=== PATIENT | female | born 1975 | race Caucasian/White ===

== ENCOUNTER 2016-08-23 20:12 | Emergency (ER) | payer MEDICAID ==
[~2016-08-23] VITALS: Ht 165.1 cm; Wt 81.3 kg
[~2016-08-23 20:12] MED LIST: IBUP-232 PO; IBUP800T23 PO; MACR100C2 PO; PERC5TAB12 PO
[2016-08-23 20:14] VITALS: BP 133/89; PULSE 79; RESP 18; TEMP 98.3; O2SAT 98
[2016-08-23 21:00] VITALS: BP 122/73; PULSE 78; RESP 18; O2SAT 97
[2016-08-23] MEDS ORDERED: SODIUM CHLOR 0.9% 1000 ML INJ 1,000 ML IV SCH (21:33)
--- NOTE | 2016-08-23 21:38 | PD ---
HPI Chief Complaint: Abdominal Pain Time Seen by Provider: 21:32 Travel History International Travel<30 days: No Contact w/Intl Traveler<30days: No Traveled to known affect area: No History of Present Illness HPI 41 year-old female presents to the emergency department by private transportation for complaint of progressive worsening right flank pain and lower abdominal pain 3 days. Patient's had nausea without vomiting. Patient denies diarrhea or constipation. Patient denies dysuria frequency urgency or hematuria. Patient denies vaginal discharge. Last menstrual period was normal for her August 13. Patient denies states she is status post previous tubal ligation. 5 para 3 AB 2. Patient states pain is very severe and if she was not having such severe persistent pain she would not come to the emergency room but has worsened today. Patient denies other concerns or complaints. No respiratory complaints no shortness of breath no chest pain. Patient reports prior history of recurrent kidney stones and patent reports that this is not the same type of pain. Patient is status post ligation and cholecystectomy in the past. Patient denies other surgeries. Patient does not report any lower extremity numbness tingling or weakness saddle anesthesia or bladder or bowel dysfunction. PFSH Past Medical History Narrative Medical Kidney stones with renal stent hepatitis C tubal ligation G 5 P3 Ab2; tobacco use; nursing notes reviewed Cancer: No Cardiovascular Problems: No Diabetes: No Diminished Hearing: No Endocrine: No Genitourinary: No Hepatitis: Yes (hep c) Hiatal Hernia: No Immune Disorder: No Kidney Stones: Yes Musculoskeletal: No Neurologic: No Psychiatric: No Reproductive: Yes (TL) Respiratory: Yes Immunizations Current: Yes Thyroid Disease: No Tetanus Vaccination: < 5 Years Influenza Vaccination: No ?: Not LMP: August 14, 2016 Menopausal: No : 5 Para: 3 Miscarriage: 1 : 1 Tubal Ligation: Yes Past Surgical History AICD: No Body Medical Devices: RIGHT ANKLE WITH SCREWS AND PINS Cholecystectomy: Yes Genitourinary Surgery: Yes (RIGHT RENAL STENT FOR HYDRONEPHROSIS ) Gynecologic Surgery: Yes (TL) Joint Replacement: No Pacemaker: No Social History Alcohol Use: No Tobacco Use: Yes (VAPES) Substance Use: No Allergies-Medications (Allergen,Severity, Reaction): Coded Allergies: Tylenol/Codeine (Unverified Adverse Reaction, Severe, Abdominal pain, 08/23) Reported Meds & Prescriptions Reported Meds & Active Scripts Active No Active Prescriptions or Reported Medications Review of Systems Except as stated in HPI: all other systems reviewed are Neg General / Constitutional: No: Fever, Chills HENT: No: Sore Throat, Congestion Cardiovascular: No: Chest Pain or Discomfort Respiratory: No: Shortness of Breath Gastrointestinal: Positive: Nausea, Abdominal Pain, Loss of Appetite, No: Vomiting, Diarrhea Genitourinary: Positive: Flank Pain, No: Urgency, Frequency, Dysuria, Hematuria, Discharge, Vaginal Bleeding Musculoskeletal: No: Myalgias, Arthralgias Skin: No Rash Neurologic: No: Weakness Psychiatric: No: Anxiety, Depression Hematologic/Lymphatic: No: Easy Bruising Physical Exam Narrative GENERAL: Well-developed well-nourished female in no acute respiratory distress SKIN: Warm and dry. HEAD: Normocephalic. EYES: No scleral icterus. No injection or drainage. NECK: Supple, trachea midline. No JVD or lymphadenopathy. CARDIOVASCULAR: Regular rate and rhythm without murmurs, gallops, or rubs. RESPIRATORY: Breath sounds equal bilaterally. No accessory muscle use. GASTROINTESTINAL: Abdomen soft, right lower quadrant and suprapubic lower abdominal pain without guarding or rebound, nondistended. Pelvic exam: MUSCULOSKELETAL: No cyanosis, or edema. BACK: Nontender without obvious deformity. Right-sided CVA tenderness. Data Data Last Documented VS Vital Signs Date Time Temp Pulse Resp B/P Pulse Ox O2 Delivery O2 Flow Rate FiO2 08/23/16 22:30 18 08/23/16 22:08 98 Room Air 08/23/16 22:00 62 138/82 08/23/16 20:14 98.3 Orders Complete Blood Count With Diff (08/23/16 21:33) Comprehensive Metabolic Panel (08/23/16 21:33) Lipase (08/23/16 21:33) Urinalysis - C+S If Indicated (08/23/16 21:33) Iv Access Insert/Monitor (08/23/16 21:33) Ecg Monitoring (08/23/16 21:33) Oximetry (08/23/16 21:33) Sodium Chlor 0.9% 1000 Ml Inj (Ns 1000 M (08/23/16 21:33) Sodium Chloride 0.9% Flush (Ns Flush) (08/23/16 21:45) Ed Urine Pregnancytest Poc (08/23/16 21:33) Ondansetron Inj (Zofran Inj) (08/23/16 21:45) Hydromorphone Pf Inj (Dilaudid Pf Inj) (08/23/16 21:45) Ct Abd/Pel W Iv Contrast(Rout) (08/23/16 ) Iohexol 350 Inj (Omnipaque 350 Inj) (08/23/16 23:50) Ketorolac Inj (Toradol Inj) (08/24/16 01:15) Hydromorphone Pf Inj (Dilaudid Pf Inj) (08/24/16 01:15) Ceftriaxone Inj (Rocephin Inj) (08/24/16 01:15) Labs Laboratory Tests Test 08/23/16 21:42 White Blood Count 8.7 TH/MM3 Red Blood Count 4.86 MIL/MM3 Hemoglobin 14.6 GM/DL Hematocrit 44.3 % Mean Corpuscular Volume 91.2 FL Mean Corpuscular Hemoglobin 30.2 PG Mean Corpuscular Hemoglobin 33.1 % Concent Red Cell Distribution Width 12.0 % Platelet Count 289 TH/MM3 Mean Platelet Volume 9.0 FL Neutrophils (%) (Auto) 60.3 % Lymphocytes (%) (Auto) 31.2 % Monocytes (%) (Auto) 5.6 % Eosinophils (%) (Auto) 2.0 % Basophils (%) (Auto) 0.9 % Neutrophils # (Auto) 5.2 TH/MM3 Lymphocytes # (Auto) 2.7 TH/MM3 Monocytes # (Auto) 0.5 TH/MM3 Eosinophils # (Auto) 0.2 TH/MM3 Basophils # (Auto) 0.1 TH/MM3 CBC Comment DIFF FINAL Differential Comment Urine Color YELLOW Urine Turbidity HAZY Urine pH 6.0 Urine Specific [place] 1.015 Urine Protein NEG mg/dL Urine Glucose (UA) NEG mg/dL Urine Ketones NEG mg/dL Urine Occult Blood TRACE Urine Nitrite NEG Urine Bilirubin NEG Urine Leukocyte Esterase NEG Urine RBC 0-3 /hpf Urine WBC 0-2 /hpf Urine Squamous Epithelial 6-8 /hpf Cells Urine Renal Epithelial Cells /hpf Urine Bacteria FEW /hpf Microscopic Urinalysis Comment CULT NOT INDICATED Sodium Level 141 MEQ/L Potassium Level 3.7 MEQ/L Chloride Level 108 MEQ/L Carbon Dioxide Level 24.8 MEQ/L Anion Gap 8 MEQ/L Blood Urea Nitrogen 10 MG/DL Creatinine 0.88 MG/DL Estimat Glomerular Filtration 70 ML/MIN Rate Random Glucose 88 MG/DL Calcium Level 9.1 MG/DL Total Bilirubin 0.9 MG/DL Aspartate Amino Transf 33 U/L (AST/SGOT) Alanine Aminotransferase 53 U/L (ALT/SGPT) Alkaline Phosphatase 66 U/L Total Protein 7.2 GM/DL Albumin 3.6 GM/DL Lipase 168 U/L [facility] Medical Decision Making Medical Screen Exam Complete: Yes Emergency Medical Condition: Yes Medical Record Reviewed: Yes Interpretation(s) Last Impressions Abdomen/Pelvis CT 08/23/16 0000 Signed Impressions: Service Date/Time: Tuesday, August 23, 2016 23:38 - CONCLUSION: 1. 1.9 cm area of decreased enhancement in the parenchyma in the upper pole of the right kidney; differential considerations include renal tumor, focal pyelonephritis, and segmental infarction. 2. No evidence of hydronephrosis on either side. 3. Prominent cervix and small hiatus hernia, stable from prior. Isidro Murray MD CBC & BMP Diagram 08/23/16 21:42 Vital Signs Date Time Temp Pulse Resp B/P Pulse Ox O2 Delivery O2 Flow Rate FiO2 08/23/16 22:30 18 08/23/16 22:08 98 Room Air 08/23/16 22:00 62 18 138/82 99 Room Air 08/23/16 21:00 78 18 122/73 97 Room Air 08/23/16 20:14 98.3 79 18 133/89 98 Differential Diagnosis Abdominal pain, renal colic, appendicitis, ovarian cyst rupture, ectopic , UTI Narrative Course IV access obtained specimens collected and sent for resulting patient administered IV fluid bolus, Zofran and Dilaudid 0.5 mg IV Diagnosis Primary Impression: Acute flank pain Additional Impression: Right flank pain Referrals: Primary Care Physician 1 day Urologist call for appointment Patient Instructions: General Instructions Additional Instructions: Increase fluid hydration Follow-up with primary care provider and urologist Return to the emergency department for any concerns or change in condition Take medication as prescribed as needed No work times one day Med/Other Pt SpecificInfo: Prescription(s) given Scripts Ibuprofen 800 Mg [id number] Mg PO Q8H PRN (PAIN GREATER THAN 5) #12 TAB Ref 0 Prov:Erika Oliver MD 08/24/16 Nitrofurantoin Monohydrate Macrocrystals (Macrobid)100 Mg [id number] Mg PO BID #6 CAP Ref 0 Prov:Erika Oliver MD 08/24/16 Ondansetron Odt (Zofran Odt)4 Mg Tab4 Mg SL Q6HR PRN (Nausea/Vomiting) #10 TAB Ref 0 Prov:Erika Oliver MD 08/24/16 Oxycodone-Acetaminophen (Percocet)5-325 mg Tab1 Tab PO Q6H PRN (PAIN) #10 TAB Ref 0 Prov:Erika Oliver MD 08/24/16 Erika Oliver MD Aug 23, 2016 21:38
[2016-08-23] MEDS ORDERED: SODIUM CHLORIDE 0.9% FLUSH 10 ML FLUSH IV FLUSH PRN (21:45)
[2016-08-23] MEDS ORDERED: HYDROmorphone HCL PF 1 MG/ML VIAL IV PUSH ONE (21:45)
[2016-08-23] MEDS ORDERED: ONDANSETRON HCL 4 MG/2 ML VIAL IV PUSH ONE (21:45)
[2016-08-23 21:53] LABS: AUTOMATED NEUTROPHIL # 5.2 TH/MM3 (1.8-7.7); BASOPHIL # 0.1 TH/MM3 (0-0.2); BASOPHIL % 0.9 % (0.0-2.0); EOSINOPHIL # 0.2 TH/MM3 (0-0.4); HEMATOCRIT 44.3 % (35.0-46.0); HEMO FLAGS DIFF FINAL; LYMPH % 31.2 % (9.0-44.0); LYMPHOCYTE # 2.7 TH/MM3 (1.0-4.8); MEAN CELL VOLUME 91.2 FL (80.0-100.0); MEAN CORPUSCULAR HEMOGLOBIN 30.2 PG (27.0-34.0); MEAN CORPUSCULAR HGB CONC 33.1 % (32.0-36.0); MONO % 5.6 % (0.0-8.0); NEUT % 60.3 % (16.0-70.0); PLATELET COUNT 289 TH/MM3 (150-450); RED BLOOD COUNT 4.86 MIL/MM3 (4.00-5.30); WHITE BLOOD COUNT 8.7 TH/MM3 (4.0-11.0)
[2016-08-23 21:55] LABS: BLOOD, URINE TRACE (NEG); GLUCOSE,URINE NEG (NEG); KETONE, URINE NEG (NEG); NITRITE,URINE NEG (NEG)
[2016-08-23 22:00] VITALS: BP 138/82; PULSE 62; RESP 18; O2SAT 99
[2016-08-23 22:01] LABS: URINE COLOR YELLOW (YELLW/STRAW)
[2016-08-23 22:02] LABS: BACTERIA, URINE FEW /hpf; COMMENT (UR) CULT NOT INDICATED; CULTURE IF INDICATED CULT NOT INDICATED; RBC, URINE 0-3 /hpf (0-3); WBC, URINE 0-2 /hpf (0-5)
[2016-08-23 22:05] LABS: CHLORIDE 108 MEQ/L (98-107); POTASSIUM 3.7 MEQ/L (3.5-5.1); SODIUM (NA) 141 MEQ/L (136-145)
[2016-08-23 22:08] VITALS: O2SAT 98
[2016-08-23 22:08] LABS: ANION GAP 8 MEQ/L (5-15); BICARBONATE 24.8 MEQ/L (21.0-32.0)
[2016-08-23 22:09] LABS: BLOOD UREA NITROGEN 10 MG/DL (7-18)
[2016-08-23 22:11] LABS: ALT (GPT) 53 U/L (10-53); AST (GOT) 33 U/L (15-37)
[2016-08-23 22:12] LABS: GLOMERULAR FILTRATION RATE 70 ML/MIN (>89)
[2016-08-23 22:13] LABS: TOTAL BILIRUBIN ADULT 0.9 MG/DL (0.2-1.0)
[2016-08-23 22:14] LABS: ALKALINE PHOSPHATASE 66 U/L (45-117)
[2016-08-23 23:00] VITALS: BP 137/82; PULSE 62; RESP 18; O2SAT 98
[2016-08-23] MEDS ORDERED: IOHEXOL 350 MG/ML 10 ML VIAL (for RAD DIAG) IV ONE (23:50)
[2016-08-24] VITALS: BP 102/67; PULSE 62; RESP 18; O2SAT 97
--- NOTE | 2016-08-24 00:09 | RADRPT ---
EXAM DATE/TIME: 08/23/2016 23:38 [facility] COMPARISON: CT ABDOMEN & PELVIS W/O CONTRAST, February 08, 2016, 10:53. INDICATIONS : Diffuse abdominal pain. IV CONTRAST: 85 cc Omnipaque 350 (iohexol) IV ORAL CONTRAST: No oral contrast ingested. RADIATION DOSE: 13.13 CTDIvol (mGy) MEDICAL HISTORY : Renal calculi. Hepatitis C. SURGICAL HISTORY : Tubal ligation. ENCOUNTER: Initial ACUITY: 3 days PAIN SCALE: 7/10 LOCATION: Diffuse abdomen. TECHNIQUE: Volumetric scanning of the abdomen and pelvis was performed. Using automated exposure control and ad justment of the mA and/or kV according to patient size, radiation dose was kept as low as reasonably achievable to obtain optimal diagnostic quality images. DICOM format image data is available electro nically for review and comparison. FINDINGS: LOWER LUNGS: The visualized lower lungs are clear. Small hiatus hernia stable. LIVER: Homogeneous density without lesion. There is no dilation of the biliary tree. Cholecystectomy. SPLEEN: Normal size without lesion. PANCREAS: Within normal limits. KIDNEYS: Kidneys are symmetric in size. No evidence of hydronephrosis. In the upper pole cortex of the right kidney, there is a focal area measuring 1.9 cm this demonstrates a decreased intensity of contrast e nhancement and mildly irregular margins. This is nonspecific in appearance with differential conside rations including a renal tumor, focal area of pyelonephritis, and segmental infarction. ADRENAL GLANDS: Within normal limits. VASCULAR: There is no aortic aneurysm. BOWEL/MESENTERY: No dilated loops of small or large bowel. Examination is performed without oral contrast which limit s sensitivity. ABDOMINAL WALL: Within normal limits. RETROPERITONEUM: There is no lymphadenopathy. BLADDER: No wall thickening or mass. REPRODUCTIVE: The cervix is prominent, measuring 7.9 cm in width. The size of the cervix is similar to prior exami nation January 2016.. Uterus is retroverted. Adnexal region is unremarkable. No free fluid. INGUINAL: There is no lymphadenopathy or hernia. MUSCULOSKELETAL: Within normal limits for patient age. CONCLUSION: 1. 1.9 cm area of decreased enhancement in the parenchyma in the upper pole of the right kidney; diff erential considerations include renal tumor, focal pyelonephritis, and segmental infarction. 2. No evidence of hydronephrosis on either side. 3. Prominent cervix and small hiatus hernia, stable from prior. Isidro Murray MD on August 23, 2016 at 23:58 Board Certified Radiologist. This report was verified electronically.
[2016-08-24 01:15] VITALS: BP 109/71; PULSE 66; RESP 18; O2SAT 97
[2016-08-24] MEDS ORDERED: KETOROLAC TROMETHAMINE 30 MG/ML (IVP) VIAL IV PUSH ONE (01:15)
[2016-08-24] MEDS ORDERED: HYDROmorphone HCL PF 1 MG/ML VIAL IV PUSH ONE (01:15)
[2016-08-24] MEDS ORDERED: cefTRIAXone INJ 1,000 MG in SODIUM CHLORIDE 0.9% INJ 100 ML IV ONE (01:15)
[2016-08-24] MEDS ORDERED: IBUP800T23 PO (01:21)
[2016-08-24] MEDS ORDERED: ZOFR4TAB3 SL (01:21)
[2016-08-24] MEDS ORDERED: PERC5TAB12 PO (01:21)
[2016-08-24] MEDS ORDERED: MACR100C2 PO (01:21)
[2016-08-24 02:08] VITALS: RESP 16
[2016-08-24 02:40] VITALS: BP 117/70; TEMP 98.1
== END 2016-08-24 02:40 | disposition home or self-care (01) ==
LOC: PHED 20:12
DX: R10.9 Unspecified abdominal pain (principal); K44.9 Diaphragmatic hernia without obstruction or gangrene; Z87.442 Personal history of urinary calculi; B19.20 Unspecified viral hepatitis C without hepatic coma
CPT/HCPCS: 74177; 80053; 81001; 83690; 84703; 85025; 96361; 96365; 96375; 96376; 99285; J0696; J1170; J1885; J2405; J7030; Q9967

== ENCOUNTER 2017-03-16 06:42 | Emergency (ER) | payer MEDICAID ==
[~2017-03-16] VITALS: Ht 165.1 cm; Wt 84.0 kg
[~2017-03-16 06:42] MED LIST changes: +DICY10 PO; -IBUP-232 PO; -IBUP800T23 PO; -MACR100C2 PO; -PERC5TAB12 PO; +ZANT150T2 PO
[2017-03-16 06:45] VITALS: BP 130/78; PULSE 70; RESP 20; TEMP 98.4
[2017-03-16 06:56] VITALS: BP 130/78; PULSE 70; RESP 16; TEMP 98.4; O2SAT 97
[2017-03-16] MEDS ORDERED: PRED20 PO (07:11)
[2017-03-16] MEDS ORDERED: AZIT250T3 PO (07:11)
[2017-03-16] MEDS ORDERED: ALBUAER3 INH (07:11)
--- NOTE | 2017-03-16 07:12 | PD ---
HPI Chief Complaint: Cold / Flu Symptoms Time Seen by Provider: 07:00 Travel History International Travel<30 days: No Contact w/Intl Traveler<30days: No Traveled to known affect area: No History of Present Illness HPI This is a 42-year-old female who presents to the emergency department with cough that has been going on for 5 days associated with green sputum production , constant, moderate severity, worse at night. She denies any fevers or chills. She also has had rhinorrhea. She feels very weak and fatigued. She does have a [id number] smoking history. She says she used IV drugs but last 5 years ago. PFSH Past Medical History Cancer: No Cardiovascular Problems: No Diabetes: No Diminished Hearing: No Endocrine: No Gastrointestinal Disorders: No Genitourinary: No Hepatitis: Yes (hep c) Hiatal Hernia: No Hypertension: No Immune Disorder: No Kidney Stones: Yes Musculoskeletal: No Neurologic: No Psychiatric: No Reproductive: Yes (TL) Respiratory: Yes Immunizations Current: Yes Thyroid Disease: No Influenza Vaccination: No ?: Not LMP: TUBAL Menopausal: No : 5 Para: 3 Miscarriage: 1 : 1 Tubal Ligation: Yes Past Surgical History AICD: No Body Medical Devices: RIGHT ANKLE WITH SCREWS AND PINS Cholecystectomy: Yes Genitourinary Surgery: Yes (RIGHT RENAL STENT FOR HYDRONEPHROSIS ) Gynecologic Surgery: Yes (TL) Joint Replacement: No Pacemaker: No Social History Alcohol Use: No Tobacco Use: Yes (VAPES) Substance Use: No Allergies-Medications (Allergen,Severity, Reaction): Coded Allergies: acetaminophen (Unverified Adverse Reaction, Severe, Abdominal pain, ) codeine (Unverified Adverse Reaction, Severe, Abdominal pain, 03/16/17) Reported Meds & Prescriptions Reported Meds & Active Scripts Active No Active Prescriptions or Reported Medications Review of Systems Except as stated in HPI: all other systems reviewed are Neg Physical Exam Narrative GENERAL:Well appearing, no acute distress SKIN: Focused skin assessment warm and dry. HEAD: Atraumatic. Normocephalic. EYES: Pupils equal and round. No injection or drainage. ENT: Moist mucous membranes. Normal appearing posterior pharynx with no exudates. NECK: Trachea midline. CARDIOVASCULAR: Regular rate and rhythm. No murmur appreciated. RESPIRATORY: Diffuse wheezing bilaterally, no increased work of breathing or accessory muscle use. GASTROINTESTINAL: Abdomen soft, non-tender, nondistended. MUSCULOSKELETAL: No obvious deformities. NEUROLOGICAL: Awake and alert. No obvious cranial nerve deficits. Moving all extremities. PSYCHIATRIC: Appropriate mood and affect; insight and judgment normal. Data Data Last Documented VS Vital Signs Date Time Temp Pulse Resp B/P (MAP) Pulse Ox O2 Delivery O2 Flow Rate FiO2 03/16/17 06:56 98.4 70 16 130/78 (95) 97 MDM Medical Decision Making Medical Screen Exam Complete: Yes Emergency Medical Condition: Yes Differential Diagnosis Bronchitis, pneumonia, viral syndrome Narrative Course This is a 42-year-old female who presents to the emergency department with wheezing, productive cough with green sputum and rhinorrhea. She has a long smoking history. I suspect she has bronchitis. She will be discharged on prednisone, bronchodilators, cough suppressant and azithromycin. She has reassuring vital signs and I think is appropriate for outpatient care. Diagnosis Primary Impression: Bronchitis Patient Instructions: General Instructions Additional Instructions: If you develop severe shortness of breath, chest pain, or difficulty breathing return to the emergency department. Use albuterol every 4 hours for the next 2 days. Then use as needed for wheezing. Complete your course of steroids. Complete your course of antibiotics. Follow up with your primary care physician in 2-3 days if your symptoms have not improved. Med/Other Pt SpecificInfo: Prescription(s) given Scripts Albuterol 8.5 GM Inh (Proair Hfa 8.5 GM Inh) 90 Mcg/Act Aer 2 PUFF INH Q4-6H Y for SHORTNESS OF BREATH, #1 INHALER 0 Refills 108 mcg/actuation Prov: Vanessa Alonso MD 03/16/17 Azithromycin (Azithromycin) 250 Mg Tab 250 MG PO DIRECTED for Infection, #6 TAB 0 Refills Take 2 tabs (500 mg) on day 1 then 1 tab daily x 4 days. Prov: Vanessa Alonso MD 03/16/17 Prednisone (Prednisone) 20 Mg Tab 40 MG PO DAILY, #10 TAB 0 Refills Take 40 mg (2 tablets) daily for 5 days Prov: Vanessa Alonso MD 03/16/17 Disposition: 01 DISCHARGE HOME Condition: Stable Vanessa Alonso MD Mar 16, 2017 07:12
[2017-03-16] MEDS ORDERED: PROM6.256 PO (07:13)
[2017-03-16] MEDS ORDERED: DOXY1LIQ3 PO (07:18)
== END 2017-03-16 07:25 | disposition home or self-care (01) ==
LOC: PHED 06:42
DX: J40 Bronchitis, not specified as acute or chronic (principal); J34.89 Other specified disorders of nose and nasal sinuses; R53.1 Weakness; R53.83 Other fatigue; Z72.0 Tobacco use; Z86.19 Personal history of other infectious and parasitic diseases; Z87.442 Personal history of urinary calculi; Z87.09 Personal history of other diseases of the respiratory system
CPT/HCPCS: 99284

== ENCOUNTER 2017-07-11 19:21 | Emergency (ER) | payer MEDICAID ==
[~2017-07-11] VITALS: Ht 165.1 cm; Wt 83.2 kg
[~2017-07-11 19:21] MED LIST changes: +ALBUAER3 INH; +AZIT250T3 PO; -DICY10 PO; +DOXY1LIQ3 PO; +PRED20 PO; +PROM6.256 PO; -ZANT150T2 PO
[2017-07-11 19:31] VITALS: BP 157/75; PULSE 69; RESP 18; TEMP 98.5; O2SAT 99
[2017-07-11] MEDS ORDERED: IBUP-232 PO (19:47)
[2017-07-11 20:25] VITALS: RESP 16; O2SAT 97
[2017-07-11 20:30] VITALS: BP 116/70; PULSE 59; RESP 16; O2SAT 97
[2017-07-11] MEDS ORDERED: SODIUM CHLORIDE 0.9% FLUSH 10 ML FLUSH IV FLUSH PRN (20:30)
[2017-07-11 20:43] LABS: AUTOMATED NEUTROPHIL # 3.2 TH/MM3 (1.8-7.7); BASOPHIL # 0.1 TH/MM3 (0-0.2); BASOPHIL % 1.1 % (0.0-2.0); EOSINOPHIL # 0.2 TH/MM3 (0-0.4); EOSINOPHIL % 3.4 % (0.0-4.0); HEMATOCRIT 39.1 % (35.0-46.0); HEMOGLOBIN 13.1 GM/DL (11.6-15.3); LYMPH % 44.6 % (9.0-44.0); LYMPHOCYTE # 3.3 TH/MM3 (1.0-4.8); MEAN CELL VOLUME 92.5 FL (80.0-100.0); MEAN CORPUSCULAR HEMOGLOBIN 31.1 PG (27.0-34.0); MEAN CORPUSCULAR HGB CONC 33.6 % (32.0-36.0); MEAN PLATELET VOLUME 9.1 FL (7.0-11.0); MONO % 6.6 % (0.0-8.0); MONOCYTE # 0.5 TH/MM3 (0-0.9); NEUT % 44.3 % (16.0-70.0); PLATELET COUNT 224 TH/MM3 (150-450); RED BLOOD COUNT 4.22 MIL/MM3 (4.00-5.30); WHITE BLOOD COUNT 7.3 TH/MM3 (4.0-11.0)
[2017-07-11 20:50] LABS: CHLORIDE 105 MEQ/L (98-107); SODIUM (NA) 138 MEQ/L (136-145)
[2017-07-11 20:53] LABS: CALCIUM 9.4 MG/DL (8.5-10.1)
[2017-07-11 20:54] LABS: ALBUMIN 3.6 GM/DL (3.4-5.0); BICARBONATE 25.2 MEQ/L (21.0-32.0); BLOOD UREA NITROGEN 13 MG/DL (7-18); GLUCOSE,RANDOM 86 MG/DL (74-106)
[2017-07-11 20:56] LABS: PROTHROMBIN TIME - PATIENT 10.4 SEC (9.8-11.6)
[2017-07-11 20:57] LABS: ALT (GPT) 71 U/L (10-53); AST (GOT) 29 U/L (15-37); GLOMERULAR FILTRATION RATE 68 ML/MIN (>89)
[2017-07-11 20:58] LABS: TOTAL BILIRUBIN ADULT 0.4 MG/DL (0.2-1.0); TOTAL PROTEIN 7.2 GM/DL (6.4-8.2)
[2017-07-11 21:00] LABS: ALKALINE PHOSPHATASE 50 U/L (45-117)
[2017-07-11 21:00] LABS: BILIRUBIN, URINE NEG (NEG); BLOOD, URINE NEG (NEG); GLUCOSE,URINE NEG (NEG); KETONE, URINE NEG (NEG); NITRITE,URINE NEG (NEG); URINE COLOR YELLOW (YELLW/STRAW); URINE LEUKOCYTE ESTERASE NEG (NEG)
[2017-07-11 21:23] LABS: WBC, URINE 0-2 /hpf (0-5)
[2017-07-11 21:24] LABS: SQUAMOUS EPITHELIAL CELL URINE 0-5 /hpf (0-5)
[2017-07-11 21:45] VITALS: BP 118/75; PULSE 50; RESP 16; O2SAT 100
[2017-07-11] MEDS ORDERED: KETOROLAC TROMETHAMINE 30 MG/ML (IVP) VIAL IV PUSH ONE (21:45)
[2017-07-11] MEDS ORDERED: ONDANSETRON ODT 4 MG TAB PO ONE (21:45)
--- NOTE | 2017-07-11 21:55 | PD ---
HPI Chief Complaint: Abdominal Pain Time Seen by Provider: 19:43 Travel History International Travel<30 days: No Contact w/Intl Traveler<30days: No Traveled to known affect area: No History of Present Illness HPI This is a 42-year-old female with history of hepatitis C, presents today with complaints of generalized abdominal pain with associated nausea. Patient denies any fevers, chills. Patient denies any blood in her vomit or stool. She does give history that she has rib and the like stools. Patient denies any previous history of pain like this. She does report that she has been retaining water. She says that this is been notable over the last week or so. There are no other complaints at the time of my examination. PFSH Past Medical History Cancer: No Cardiovascular Problems: No Diabetes: No Diminished Hearing: No Endocrine: No Gastrointestinal Disorders: No Genitourinary: No Hepatitis: Yes (hep c) Hiatal Hernia: No Hypertension: No Immune Disorder: No Kidney Stones: Yes Musculoskeletal: No Neurologic: No Psychiatric: No Reproductive: Yes (TL) Respiratory: Yes Immunizations Current: Yes Thyroid Disease: No Influenza Vaccination: No ?: Not LMP: 06-20-17 Menopausal: No : 5 Para: 3 Miscarriage: 1 : 1 Tubal Ligation: Yes Past Surgical History AICD: No Body Medical Devices: RIGHT ANKLE WITH SCREWS AND PINS Cholecystectomy: Yes Genitourinary Surgery: Yes (RIGHT RENAL STENT FOR HYDRONEPHROSIS/LITHOTRIPSY) Gynecologic Surgery: Yes (TL) Joint Replacement: No Pacemaker: No Social History Alcohol Use: No Tobacco Use: Yes (VAPES) Substance Use: No Allergies-Medications (Allergen,Severity, Reaction): Coded Allergies: acetaminophen (Unverified Adverse Reaction, Severe, Abdominal pain, ) codeine (Unverified Adverse Reaction, Severe, Abdominal pain, 07/11/17) Reported Meds & Prescriptions Reported Meds & Active Scripts Active Ranitidine (Ranitidine HCl) 150 Mg Tab 150 Mg PO BID Ketorolac (Ketorolac Tromethamine) 10 Mg Tab 10 Mg PO TID 3 Days Reported Ibuprofen 600 Mg Tab 600 Mg PO Q6H PRN Review of Systems Except as stated in HPI: all other systems reviewed are Neg General / Constitutional: No: Fever, Chills HENT: No: Headaches, Lightheadedness Cardiovascular: No: Chest Pain or Discomfort, Palpitations Respiratory: No: Cough, Shortness of Breath Gastrointestinal: Positive: Nausea, Vomiting, Abdominal Pain, Other (Ribbon like stools per), No: Diarrhea Genitourinary: No: Frequency, Dysuria Musculoskeletal: Positive: Weakness (Generalized), No: Pain Neurologic: Positive: Weakness (Generalized), No: Headache, Change in Mentation Physical Exam Narrative GENERAL: Well developed well-nourished female in no acute respiratory distress. SKIN: Focused skin assessment warm/dry. HEAD: Atraumatic. Normocephalic. EYES: Pupils equal and round. No scleral icterus. No injection or drainage. ENT: No nasal bleeding or discharge. Mucous membranes pink and moist. NECK: Trachea midline. No JVD. CARDIOVASCULAR: Regular rate and rhythm. No murmur appreciated. RESPIRATORY: No accessory muscle use. Clear to auscultation. Breath sounds equal bilaterally. GASTROINTESTINAL: Abdomen soft, nondistended. She has subjective discomfort diffusely. There is no rebound or guarding. MUSCULOSKELETAL: No obvious deformities. No clubbing. No cyanosis. Trace pretibial edema. NEUROLOGICAL: Awake and alert. No obvious cranial nerve deficits. Motor grossly within normal limits. Normal speech. Data Data Last Documented VS Vital Signs Date Time Temp Pulse Resp B/P (MAP) Pulse Ox O2 Delivery O2 Flow Rate FiO2 07/11/17 22:30 70 16 113/67 (82) 99 Room Air 07/11/17 19:31 98.5 Orders Orders Complete Blood Count With Diff (07/11/17 20:18) Comprehensive Metabolic Panel (07/11/17 20:18) Lipase (07/11/17 20:18) Prothrombin Time / Inr (Pt) (07/11/17 20:18) Act Partial Throm Time (Ptt) (07/11/17 20:18) Urinalysis - C+S If Indicated (07/11/17 20:18) Iv Access Insert/Monitor (07/11/17 20:18) Ecg Monitoring (07/11/17 20:18) Oximetry (07/11/17 20:18) Sodium Chloride 0.9% Flush (Ns Flush) (07/11/17 20:30) Ondansetron Odt (Zofran Odt) (07/11/17 21:45) Ketorolac Inj (Toradol Inj) (07/11/17 21:45) Ct Abd/Pel W Iv Contrast(Rout) (07/11/17 21:37) Ed Urine Pregnancytest Poc (07/11/17 21:37) Oral Contrast - Adult (07/11/17 22:05) Diatrizoate Liq (Md Wise Liq) (07/11/17 22:21) Iohexol 350 Inj (Omnipaque 350 Inj) (07/11/17 23:37) Labs Laboratory Tests Test 07/11/17 20:00 07/11/17 20:10 Urine Color YELLOW Urine Turbidity CLEAR Urine pH 6.0 Urine Specific [place] 1.010 Urine Protein NEG mg/dL Urine Glucose (UA) NEG mg/dL Urine Ketones NEG mg/dL Urine Occult Blood NEG Urine Nitrite NEG Urine Bilirubin NEG Urine Urobilinogen 0.2 MG/DL Urine Leukocyte Esterase NEG Urine WBC 0-2 /hpf Urine Squamous Epithelial Cells 0-5 /hpf Microscopic Urinalysis Comment CULT NOT INDICATED White Blood Count 7.3 TH/MM3 Red Blood Count 4.22 MIL/MM3 Hemoglobin 13.1 GM/DL Hematocrit 39.1 % Mean Corpuscular Volume 92.5 FL Mean Corpuscular Hemoglobin 31.1 PG Mean Corpuscular Hemoglobin Concent 33.6 % Red Cell Distribution Width 12.0 % Platelet Count 224 TH/MM3 Mean Platelet Volume 9.1 FL Neutrophils (%) (Auto) 44.3 % Lymphocytes (%) (Auto) 44.6 % Monocytes (%) (Auto) 6.6 % Eosinophils (%) (Auto) 3.4 % Basophils (%) (Auto) 1.1 % Neutrophils # (Auto) 3.2 TH/MM3 Lymphocytes # (Auto) 3.3 TH/MM3 Monocytes # (Auto) 0.5 TH/MM3 Eosinophils # (Auto) 0.2 TH/MM3 Basophils # (Auto) 0.1 TH/MM3 CBC Comment DIFF FINAL Differential Comment Prothrombin Time 10.4 SEC Prothromb Time International Ratio 1.0 RATIO Activated Partial Thromboplast Time 23.8 SEC Blood Urea Nitrogen 13 MG/DL Creatinine 0.90 MG/DL Random Glucose 86 MG/DL Total Protein 7.2 GM/DL Albumin 3.6 GM/DL Calcium Level 9.4 MG/DL Alkaline Phosphatase 50 U/L Aspartate Amino Transf (AST/SGOT) 29 U/L Alanine Aminotransferase (ALT/SGPT) 71 U/L Total Bilirubin 0.4 MG/DL Sodium Level 138 MEQ/L Potassium Level 3.6 MEQ/L Chloride Level 105 MEQ/L Carbon Dioxide Level 25.2 MEQ/L Anion Gap 8 MEQ/L Estimat Glomerular Filtration Rate 68 ML/MIN Lipase 193 U/L MDM Medical Decision Making Medical Screen Exam Complete: Yes Emergency Medical Condition: Yes Differential Diagnosis [place] otitis versus cholecystitis versus ascites. Narrative Course This is a 42-year-old female with history of hepatitis C, presents here with generalized abdominal pain. Patient also reports ribbonlike stools. Patient has a fevers, chills. Patient's abdomen soft and nondistended on exam. She does have trace edema to her bilateral lower extremity's. Labs show a slightly elevated ALT. Urinalysis and the remainder of her labs are within normal limits. A CT scan of the and pelvis was ordered to rule out acute pathology. There is no evidence of acute intra-abdominal pathology. The patient will be discharged with a prescription for ketorolac, 10 mg 3 times daily for 3 days. She also be given a prescription for ranitidine 150 twice daily for 15 days. She is instructed to have a bland diet and avoid spicy acidic foods. She will have a mandatory referral for GI follow-up. Diagnosis Primary Impression: Abdominal pain Additional Impressions: History of hepatitis C History of kidney stones Additional Instructions: A mandatory referral for GI will be entered in the computer. You should receive a call from a lining caser with information on follow-up with the GI physician. [place] diet. Avoid spicy fatty foods. Return if feeling worse. Scripts Ranitidine (Ranitidine) 150 Mg Tab 150 MG PO BID for Heartburn Management, #30 TAB 0 Refills Prov: Skip Torres MD 07/11/17 Ketorolac (Ketorolac) 10 Mg Tab 10 MG PO TID for Pain Management for 3 Days, #9 TAB 0 Refills Prov: Skip Torres MD 07/11/17 Disposition: 01 DISCHARGE HOME Condition: Stable Skip Torres MD July 11, 2017 21:55
[2017-07-11] MEDS ORDERED: DIATRIZOATE MEGLUM/DIATRIZOATE SOD 9 ML CUP ONE (22:21)
[2017-07-11 22:30] VITALS: BP 113/67; PULSE 70; RESP 16; O2SAT 99
[2017-07-11] MEDS ORDERED: IOHEXOL 350 MG/ML 10 ML VIAL (for RAD DIAG) IVCONTRAST ONE (23:37)
--- NOTE | 2017-07-11 23:50 | RADRPT ---
EXAM DATE/TIME: 07/11/2017 23:21 [place] COMPARISON: CT ABDOMEN & PELVIS W/O CONTRAST, December 27, 2016, 17:26. INDICATIONS : Abdominal pain and distention. IV CONTRAST: 100 cc Omnipaque 350 (iohexol) IV ORAL CONTRAST: Prescribed oral contrast ingested. RADIATION DOSE: 14.35 CTDIvol (mGy) MEDICAL HISTORY : Hepatitis C. SURGICAL HISTORY : Tubal ligation. Cholecystectomy. ENCOUNTER: Initial ACUITY: 1 day PAIN SCALE: 8/10 LOCATION: Bilateral upper quadrant lower quadrant TECHNIQUE: Volumetric scanning of the abdomen and pelvis was performed. Using automated exposure control and ad justment of the mA and/or kV according to patient size, radiation dose was kept as low as reasonably achievable to obtain optimal diagnostic quality images. DICOM format image data is available electro nically for review and comparison. FINDINGS: Lung bases are clear. No acute findings in the liver, spleen, adrenals, kidneys or pancreas. Previous cholecystectomy. Stomach is distended. No evidence for bowel obstruction. No free air or free fluid. Small hiatal jacobo ia. CONCLUSION: 1. Gastric distention. Otherwise no acute findings within the abdomen and pelvis. Previous cholecyste ctomy. Joshua Castro MD on July 11, 2017 at 23:43 Board Certified Radiologist. This report was verified electronically.
[2017-07-11] MEDS ORDERED: RANI150T PO (23:57)
[2017-07-11] MEDS ORDERED: KETO10 PO (23:57)
[2017-07-12 00:42] VITALS: BP 126/81; PULSE 63; RESP 16; O2SAT 98
== END 2017-07-12 00:40 | disposition home or self-care (01) ==
LOC: PHED 19:21
DX: R10.84 Generalized abdominal pain (principal); R11.2 Nausea with vomiting, unspecified; R53.1 Weakness; F17.290 Nicotine dependence, other tobacco product, uncomplicated; Z86.19 Personal history of other infectious and parasitic diseases; Z87.442 Personal history of urinary calculi; Z88.6 Allergy status to analgesic agent; Z88.5 Allergy status to narcotic agent
CPT/HCPCS: 74177; 80053; 81001; 83690; 84703; 85025; 85610; 85730; 96374; 99284; J1885; Q9963; Q9967